=== PATIENT | female | born 1980 | race Caucasian/White ===

== ENCOUNTER 2017-07-05 08:16 | Emergency (ER) | payer OTHER ==
[~2017-07-05] VITALS: Ht 172.7 cm; Wt 79.4 kg
[2017-07-05 08:18] VITALS: BP_SYST 86
[2017-07-05] MEDS ORDERED: ZOFRAN IV STA (08:41)
--- NOTE | 2017-07-05 08:43 | ER.PDOC ---
General Chief Complaint: Cough/Congestion Stated Complaint: COUGH,FEVER, VOMITING Time seen by MD: 08:42 Source: patient Exam Limitations: no limitations History of Present Illness Initial Comments Fever, cough and congestion for 1 Month Timing/Duration: gradual Severity: moderate Associated Symptoms: fever/chills, runny nose, cough Allergies: Coded Allergies: No Known Allergies (Unverified , 07/05/17) Constitutional: see HPI EENTM: see HPI Respiratory: see HPI Cardiovascular: no symptoms reported Gastrointestinal: vomiting Genitourinary: no symptoms reported All Other Systems: Reviewed and Negative Past Medical History Medical History: no pertinent history Surgical History: , tubal Social History Smoking: less than 1 pack/day Alcohol Use: occassionally Drug Use: marijuana Physical Exam General Appearance: alert, no distress Eye: eyes nml inspection Nose: nose nml Throat: pharynx nml, airway nml Neck: nml inspection, supple Respiratory: no resp.distress, breath sounds nml Abdomen: non-tender, no organomegaly CVS: reg rate & rhythm, heart sounds nml Skin: color nml, no rash, warm/dry Extremities: non-tender, nml ROM, no pedal edema NEURO/PSYCH: oriented x 3, CN's nml as tested, motor nml, sensation nml, mood/ affect nml Results/Orders Results/Orders Laboratory Tests Test 07/05/17 08:53 07/05/17 08:57 Influenza Virus Type A Antibody NEGATIVE (NEG) Influenza Virus Type B Antibody NEGATIVE (NEG) Group A Streptococcus Screen NEGATIVE (NEGATIVE) White Blood Count 13.6 10^3/uL (4.5-11.0) Red Blood Count 4.25 10^6/uL (4.00-5.20) Hemoglobin 11.3 g/dL (12.0-15.0) Hematocrit 35.4 % (36.0-46.0) Mean Corpuscular Volume 83.3 fL (78-100) Mean Corpuscular Hemoglobin 26.6 pg (26-34) Mean Corpuscular Hemoglobin Concent 31.9 g/dL (33-37) Red Cell Distribution Width 14.6 % (11.5-14.5) Platelet Count 281 10^3/uL (150-400) Mean Platelet Volume 9.5 fL (7.8-11.0) Neutrophils (%) (Auto) 82.3 % (41.0-85.0) Lymphocytes (%) (Auto) 8.1 % (24.0-44.0) Monocytes (%) (Auto) 9.2 % (5.0-12.0) Neutrophils # (Auto) 11.2 10^3/uL (1.8-7.7) Lymphocytes # (Auto) 1.1 10^3/uL (1.0-4.8) Monocytes # (Auto) 1.3 10^3/uL (0.3-0.8) Absolute Immature Granulocyte (auto 0.04 10^3 u/L (0-2) Eosinophils % 0.0 % (0.0-5.0) Basophils % 0.1 % (0.0-0.2) Basophils # 0.0 10^3/uL (0.0-0.1) Eosinophil Count 0.0 10^3/uL (0.0-0.2) Sodium Level 136 mmol/L (132-145) Potassium Level 3.7 mmol/L (3.6-5.2) Chloride Level 103.0 mmol/L (96-109) Carbon Dioxide Level 19.0 mmol/L (20.0-32) Anion Gap 17.7 Blood Urea Nitrogen 11 mg/dL (7-18) Creatinine 0.89 mg/dL (0.59-1.40) Estimated GFR () 85.4 (>/=60) BUN/Creatinine Ratio 12.0 Glucose Level 117 mg/dL (70-110) Calcium Level 7.8 mg/dL (8.4-10.5) Total Bilirubin 0.2 mg/dL (0.2-1.0) Aspartate Amino Transf (AST/SGOT) 26 U/L (0-35) Alanine Aminotransferase (ALT/SGPT) 49 U/L (12-78) Alkaline Phosphatase 103 U/L (50-136) Total Protein 6.7 g/dL (6.4-8.2) Albumin 3.2 g/dL (3.4-5.0) Globulin 3.5 Percent Immature Gran (Cell Imm) 0.30 % (0.00-0.50) Administered Medications Medications (Trade) Dose Ordered Sig/Basilio Route PRN Reason Start Time Stop Time Status Last Admin Dose Admin Ondansetron HCl (Zofran) 4 mg STAT STAT IV 07/05/17 08:41 07/05/17 08:42 UNV 07/05/17 09:02 EKG/XRAY/CT/US XRAY: chest (Nothing acute) Departure Time of Disposition: 09:50 Disposition: 01 HOME, SELF-CARE Impression: Primary Impression: Acute bronchitis Qualified Codes: J20.9 - Acute bronchitis, unspecified Condition: Stable Additional Instructions: Azithromycin Medrol dose pack Cheratussin AC Tylenol F/U with your PCP next week Duration or Time Spent with Pa: 90 mins BRISEIDA,MAYO Smallwood MD Jul 05, 2017 08:43
[2017-07-05] MEDS ORDERED: ZOFRAN ONE (08:54)
[2017-07-05 09:04] LABS: BASOPHIL % 0.1 % (0.0-0.2); HEMOGLOBIN 11.3 g/dL (12.0-15.0); LYMPHOCYTES # 1.1 10^3/uL (1.0-4.8); LYMPHOCYTES % 8.1 % (24.0-44.0); MEAN CELL HGB 26.6 pg (26-34); MEAN CELL HGB CONCENTRATION 31.9 g/dL (33-37); MEAN CORP VOLUME 83.3 fL (78-100); MEAN PLATELET VOLUME 9.5 fL (7.8-11.0); MONOCYTES # 1.3 10^3/uL (0.3-0.8); MONOCYTES % 9.2 % (5.0-12.0); NEUTROPHIL # 11.2 10^3/uL (1.8-7.7); NEUTROPHILS % 82.3 % (41.0-85.0); RED CELL DISTRIBUTION WIDTH 14.6 % (11.5-14.5); WHITE BLOOD CELL 13.6 10^3/uL (4.5-11.0)
--- NOTE | 2017-07-05 09:15 | DIREP ---
PROCEDURE:CHEST 2 VIEWS COMPARISON:None. INDICATIONS:cough FINDINGS: LUNGS/PLEURA:No significant pulmonary parenchymal abnormalities. No effusions. VASCULATURE:Normal. Unremarkable pulmonary vasculature. CARDIAC:Normal. No cardiac silhouette abnormality or cardiomegaly. MEDIASTINUM:Normal. No visible mass or adenopathy. BONES:Normal. No fracture or visible bony lesion. OTHER:Negative. CONCLUSION: 1. No active cardiopulmonary disease is demonstrated. Dictated by: Trae Berman M.D. on 07/05/2017 at 09:14 AM
[2017-07-05 09:21] LABS: CALCIUM 7.8 mg/dL (8.4-10.5)
[2017-07-05 09:38] LABS: STREP SCREEN NEGATIVE (NEGATIVE)
[2017-07-05] MEDS ORDERED: ROCEPHIN 1,000 MG in NS 100ML 100 ML IV STA (09:49)
[2017-07-05] MEDS ORDERED: NS 100ML 100 ML IV ONE (10:02)
[2017-07-05] MEDS ORDERED: ROCEPHIN ONE (10:02)
[2017-07-05 10:22] VITALS: BP 133/85
[2017-07-05 10:36] VITALS: BP 133/85
== END 2017-07-05 10:22 | disposition home or self-care (01) ==
LOC: EDSEX 08:16 → ER 08:16 → EDBD 08:16 → ER 10:22
DX: J20.9 Acute bronchitis, unspecified (principal); R11.10 Vomiting, unspecified; F17.200 Nicotine dependence, unspecified, uncomplicated; F12.10 Cannabis abuse, uncomplicated
CPT/HCPCS: 36415; 71046; 80053; 85025; 86710; 87040 ×2; 87070; 87880; 96374; 96375; 99285; J0696 ×2; J2405; J7050 ×2